=== PATIENT | female | born 1995 | race African-American/Black ===

== ENCOUNTER 2017-02-13 06:18 | Emergency (ER) | payer OTHER ==
[2017-02-13 07:02] VITALS: BMI 29.7
[2017-02-13 07:07] LABS: BASOPHIL 0.5 % (0-2.0); EOSINOPHIL 2.5 % (0-4.5); MCH 27.2 pg (25.7-33.7); MCHC 33.3 g/dl (32.0-36.0); MEAN CELL VOLUME 81.7 fl (80-96); MEAN PLT VOLUME 8.2 fl (7.5-11.1); NEUTROPHILS 41.6 % (42.8-82.8); PLATELET COUNT 415 K/MM3 (134-434); RDW 12.9 % (11.6-15.6); WHITE BLOOD COUNT 6.1 K/mm3 (4.0-10.0)
[2017-02-13 07:35] LABS: ALBUMIN 3.4 g/dl (3.4-5.0); ANION GAP 8 (8-16); BILIRUBIN,TOTAL 0.5 mg/dL (0.2-1.0); CO2 25 mmol/L (21-32); CREATININE 0.5 mg/dL (0.55-1.02); GLUCOSE,RANDOM 93 mg/dL (74-106); SGOT/AST 28 U/L (15-37); SGPT/ALT 63 U/L (12-78); THYROXINE (T4) 13.7 ug/dl (4.8-13.9); TOT PROT 7.3 g/dl (6.4-8.2)
[2017-02-13 07:43] LABS: ALK PHOS 95 U/L (45-117); CPK 49 IU/L (26-192); THYROID STIMULATING HORMONE < 0.01 uIU/ml (0.358-3.74); TROPONIN I < 0.02 ng/ml (0.00-0.05)
[2017-02-13] MEDS ORDERED: SODIUM CHLORIDE 0.9% 1000 ML INFUS.BAG IV ONE (07:51)
--- NOTE | 2017-02-13 07:55 | PDOC ---
History of Present Illness - General Chief Complaint: Tachycardia Stated Complaint: CHEST TIGHTNESS, ABD PAIN Time Seen by Provider: 02/13/17 07:29 History Source: Patient Exam Limitations: No Limitations - History of Present Illness Initial Comments: 02/13/17 09:56 21F with pmh of Grave's disease on methimazole and metoprolol presents to the ED for recent worsening in chest tightness over the past week, sob on exertion and epigastric abdominal pain worsening with food since 10pm last night. Patient has been diagnosed with grave 7 years ago and followed by Dr. Avni White. She is symptomatic with chronically elevated heart rate for which her PCP Rosalinda Mullins prescribed metoprolol last month. Previous abdominal ultrasound from this year showed multiple stones in the gallbladder with possible chronic cholecystitis diagnosis. Patient denies headache, nausea, vomiting, constipation, diarrhea 02/13/17 10:16 Past History - Past Medical History Allergies/Adverse Reactions: Allergies Allergy/AdvReac Type Severity Reaction Status Date / Time No Known Allergies Allergy Verified 02/13/17 06:38 Home Medications: Ambulatory Orders Methimazole 40 mg PO DAILY #30 tablet 02/13/17 Methimazole [Tapazole -] 15 mg PO DAILY 02/13/17 Metoprolol Succinate [Toprol Xl -] 37.5 mg PO DAILY 02/13/17 Metoprolol Tartrate 37.5 mg PO DAILY #30 tablet 02/13/17 Thyroid Disease: Yes - Psycho/Social/Smoking Cessation Hx Suicidal Ideation: No Smoking History: Never smoked Review of Systems - Review of Systems Constitutional: No: Diaphoresis, Fever HEENTM: No: Eye Pain, Blurred Vision Respiratory: Yes: SOB with Exertion. No: Symptoms reported Cardiac (ROS): Yes: Chest Tightness. No: Chest Pain, Edema, Irregular Heart Rate, Lightheadedness ABD/GI: Yes: Poor Appetite. No: Abd. Pain w/ defecation, Constipated, Nausea, Vomiting : No: Symptoms Reported Musculoskeletal: No: Symptoms Reported Endocrine: No: Excessive Sweating, Flushing, Intolerance to Cold, Intolerance to Heat *Physical Exam - Vital Signs Last Vital Signs Temp Pulse Resp BP Pulse Ox 98.6 F 88 18 100/60 100 02/13/17 15:15 02/13/17 15:15 02/13/17 15:15 02/13/17 15:15 02/13/17 15:15 - Physical Exam General Appearance: Yes: Appropriately Dressed, Obese. No: Apparent Distress HEENT: positive: EOMI, Other (proptosis) Gastrointestinal/Abdominal: positive: Normal Bowel Sounds, Soft, Protuberent. negative: Tender Extremity: positive: Normal Capillary Refill, Normal Inspection. negative: Pedal Edema Neurologic: positive: Fully Oriented, Alert, Normal Mood/Affect, Normal Response , Motor Strength 10/29 ED Treatment Course - LABORATORY CBC & Chemistry Diagram: 02/13/17 06:48 02/13/17 06:48 - ADDITIONAL ORDERS Additional order review: Laboratory Results 02/13/17 02/13/17 02/13/17 09:47 08:26 08:26 D-Dimer Sodium Potassium Chloride Carbon Dioxide Anion Gap BUN Creatinine Creat Clearance w eGFR Random Glucose Calcium Total Bilirubin AST ALT Alkaline Phosphatase Creatine Kinase Troponin I Total Protein Albumin Lipase Cancelled TSH Free T4 Serum , Qual Urine Color Patt Urine Appearance Slcloudy Urine pH 5.0 Ur Specific [place] >= 1.030 H Urine Protein 1+ H Urine Glucose (UA) Negative Urine Ketones 1+ H Urine Blood Negative Urine Nitrite Negative Urine Bilirubin 2.0 Urine Urobilinogen 4.0 e.u/dl H Ur Leukocyte Esterase Negative Urine RBC 1 Urine WBC 2 Ur Epithelial Cells Few Urine Mucus Many Urine HCG, Qual Negative Opiates Screen Negative Methadone Screen Negative Barbiturate Screen Negative Phencyclidine Screen Negative Ur Amphetamines Screen Negative MDMA (Ecstasy) Screen Negative Benzodiazepines Screen Negative Cocaine Screen Negative U Marijuana (THC) Screen Negative 02/13/17 02/13/17 02/13/17 06:48 06:48 06:48 D-Dimer < 200 Sodium 140 Potassium 3.6 Chloride 107 Carbon Dioxide 25 Anion Gap 8 BUN 16 Creatinine 0.5 L Creat Clearance w eGFR > 60 Random Glucose 93 Calcium 9.0 Total Bilirubin 0.5 AST 28 ALT 63 Alkaline Phosphatase 95 Creatine Kinase 49 Troponin I < 0.02 Total Protein 7.3 Albumin 3.4 Lipase 76 TSH < 0.01 L Free T4 2.05 H Serum , Qual Negative Urine Color Urine Appearance Urine pH Ur Specific [place] Urine Protein Urine Glucose (UA) Urine Ketones Urine Blood Urine Nitrite Urine Bilirubin Urine Urobilinogen Ur Leukocyte Esterase Urine RBC Urine WBC Ur Epithelial Cells Urine Mucus Urine HCG, Qual Opiates Screen Methadone Screen Barbiturate Screen Phencyclidine Screen Ur Amphetamines Screen MDMA (Ecstasy) Screen Benzodiazepines Screen Cocaine Screen U Marijuana (THC) Screen 02/13/17 06:48 RBC 4.45 MCV 81.7 MCHC 33.3 RDW 12.9 MPV 8.2 Neutrophils % 41.6 L Lymphocytes % 45.1 H Monocytes % 10.3 H Eosinophils % 2.5 Basophils % 0.5 - Medications Given in the ED: ED Medications Discontinued Medications Generic Name Dose Route Start Last Admin Trade Name Celia PRN Reason Stop Dose Admin Methimazole 30 mg 02/13/17 13:30 02/13/17 14:43 Tapazole - PO 30 mg DAILY CAPRI Administration Metoprolol Tartrate 5 mg 02/13/17 10:57 02/13/17 11:21 Lopressor Injection - IVPUSH 02/13/17 10:58 5 mg ONCE ONE Administration Metoprolol Tartrate 25 mg 02/13/17 13:27 02/13/17 14:07 Lopressor - PO 02/13/17 13:28 25 mg ONCE ONE Administration Sodium Chloride 1,000 ml 02/13/17 07:51 02/13/17 08:25 Normal Saline - IV 02/13/17 07:52 1,000 ml ONCE ONE Administration Medical Decision Making - Medical Decision Making 02/13/17 10:45 21F with pmh of Grave's presents with tachycardia, chest tightness and epigastric pain. labs, lytes normal. Bed side u/s negative for riight heart strain, effusion or myexema. EKG ok rate control metoptolol iv 5mg Negative fever, agitation points away from Thyroid Storm etiology. 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 02/13/17 11:57 02/13/17 15:02 Patient received 40mg methinazole + adding 25mg metoprolol PO *DC/Admit/Observation/Transfer Diagnosis at time of Disposition: Graves disease - Discharge Dispostion Disposition: HOME Admit: No - Prescriptions Prescriptions: Methimazole 40 mg PO DAILY #30 tablet Metoprolol Tartrate 37.5 mg PO DAILY #30 tablet - Referrals Referrals: Mykel Colvin MD [Staff Physician] - Rosalinda Mullins MD [Primary Care Provider] - Avni White MD [Staff Physician] - - Patient Instructions Printed Discharge Instructions: DI for Graves Disease, DI for Hyperthyroidism Additional Instructions: Make appointments deann with Dr Adriana Mullins and Dr. White. Dr. Mykel Colvin for gallstone follow up
[2017-02-13 08:30] VITALS: TEMP 98.6
--- NOTE | 2017-02-13 09:41 | PDOC ---
Attending Attestation - Resident Resident Name: Edgar Gomez - ED Attending Attestation I have performed the following: I have examined & evaluated the patient, The case was reviewed & discussed with the resident, I agree w/resident's findings & plan, Exceptions are as noted - HPI HPI: 02/13/17 09:41 21 yo F wit h/o hyperthyroid ( graves on methimazole 15 mg daily and metoprolol 37.5 mg QD) here wtih c/o palpitations, sob and chest pain. pt has had epigastric pain with eating. sharp, intermittent. worse with food . does have known h/o cholelithiasis. sob with exertion, not positional. no noted edema. no f/c no n/v . pain not pleuritic. no other mod factors. was just started on metoprolol by her pcp recently one month ago. told to tirate as needed but has been takig only prescribed 37.5. 02/13/17 10:00 - Physicial Exam PE: 02/13/17 10:01 awake alert lungs clear heart regular tachycardia, no mr/g. abd soft NT ND. no cva tenderness. skin warm and dry. ext wwp no edema. no calf tenderness. 2 + dp / pt . nuero awake alert oriented x 3. calm, FROm and strenth all ext. - Medical Decision Making 02/13/17 10:02 differential Hyperthyroid, dehydration anemia, electrolyte abnormality cholelithaiss, cholecystitis. 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 no sxs of thyroid storm, ( no hypertension, no edema. no delirium) due to HR as high as 150's will require admission for evaluation on tele. 02/13/17 10:07 focused ED ultrasound TTE, no pericardial effusion. no rv dilation or strain. good contractility. impression : normal cardiac ultrasound. cirilli
[2017-02-13 10:31] LABS: URINE APPEARANCE SLCLOUDY; URINE BLOOD NEGATIVE (NEGATIVE); URINE COLOR AMBER; URINE GLUCOSE (UA) NEGATIVE (NEGATIVE); URINE KETONE 1+ (NEGATIVE); URINE LEUK ESTERASE NEGATIVE (NEGATIVE); URINE NITRITE NEGATIVE (NEGATIVE); URINE UROBILINOGEN 4.0 E.U/dl mg/dL (0.2-1.0)
[2017-02-13 10:37] LABS: URINE PROTEIN 1+ (NEGATIVE)
[2017-02-13 10:49] LABS: URINE MUCUS MANY; URINE RBC 1 /hpf (0-3); URINE WBC 2 /hpf (3-5)
[2017-02-13] MEDS ORDERED: METOPROLOL TARTRATE 5 MG/5 ML VIAL IVPUSH ONE (10:57)
[2017-02-13] MEDS ORDERED: METOPROLOL TARTRATE 5 MG/5 ML VIAL ONE (11:13)
[2017-02-13 11:23] LABS: URINE MARIJUANA THC NEGATIVE ng/ml (CUTOFF=50)
[2017-02-13 11:51] LABS: FREE T4 2.05 ng/dl (0.76-1.46)
--- NOTE | 2017-02-13 12:48 | EKG ---
Test Reason : Blood Pressure : / mmHG Vent. Rate : 117 BPM Atrial Rate : 117 BPM P-R Int : 128 ms QRS Dur : 084 ms QT Int : 324 ms P-R-T Axes : 056 062 060 degrees QTc Int : 451 ms SINUS TACHYCARDIA MODERATE VOLTAGE CRITERIA FOR LVH, MAY BE NORMAL VARIANT BORDERLINE ECG NO PREVIOUS ECGS AVAILABLE Confirmed by YAMILETH MEDRANO MD ([id number]) on 02/13/2017 12:48:31 PM Referred By: Confirmed By:YAMILETH MEDRANO MD
[2017-02-13] MEDS ORDERED: METOPROLOL TARTRATE 25 MG TABLET (FP) PO ONE (13:27)
[2017-02-13] MEDS ORDERED: METHIMAZOLE 10 MG TABLET (FP) PO SCH (13:30)
[2017-02-13] MEDS ORDERED: METOPROLOL TARTRATE 25 MG TABLET (FP) ONE (13:34)
[2017-02-13 15:23] VITALS: BP 100/60; PULSE 88
--- NOTE | 2017-02-14 11:30 | EKG ---
Test Reason : Blood Pressure : / mmHG Vent. Rate : 095 BPM Atrial Rate : 095 BPM P-R Int : 142 ms QRS Dur : 090 ms QT Int : 356 ms P-R-T Axes : 007 061 050 degrees QTc Int : 447 ms NORMAL SINUS RHYTHM NORMAL ECG WHEN COMPARED WITH ECG OF 13-FEB-2017 06:54, NO SIGNIFICANT CHANGE WAS FOUND Confirmed by GEOVANNA KNIGHT MD ([id number]) on 02/14/2017 11:29:43 AM Referred By: Confirmed By:GEOVANNA KNIGHT MD
== END 2017-02-13 15:20 | disposition home or self-care (01) ==
LOC: JER 06:18
PROC: 3E033GC Introduction of Other Therapeutic Substance into Peripheral Vein, Percutaneous Approach (ICD-10-PCS; principal; 2017-02-13)
PROC: 3E0337Z Introduction of Electrolytic and Water Balance Substance into Peripheral Vein, Percutaneous Approach (ICD-10-PCS; 2017-02-13)
DX: E05.00 Thyrotoxicosis with diffuse goiter without thyrotoxic crisis or storm (principal)
CPT/HCPCS: 36415; 71020-TC; 80053; 80307; 81003; 81015; 83690; 84436; 84439; 84443; 84481; 84484; 84703; 85025; 85379; 93005; 93010; 99285-25

== ENCOUNTER 2018-09-15 05:25 | Day surgery (SDC) | payer OTHER ==
[2018-09-14 13:47] VITALS: BMI 26.3
[2018-09-15] MEDS ORDERED: MICROFIBRILLAR COLLAGEN 1 GM EACH ONE (10:18)
[2018-09-15] MEDS ORDERED: LIDOCAINE 1%-EPI 1:100,000 30 ML MDV IJ ONE (10:18)
[2018-09-15] MEDS ORDERED: PROPOFOL 20 ML ONE ×2 (12:09→13:59)
[2018-09-15] MEDS ORDERED: SUCCINYLCHOLINE CHLORIDE 200 MG/10 ML VIAL ONE (12:09)
[2018-09-15] MEDS ORDERED: fentaNYL CITRATE 250 MCG/5 ML VIAL ONE (12:09)
[2018-09-15] MEDS ORDERED: ceFAZolin SODIUM 1 GM VIAL IVPB ONE (12:25)
[2018-09-15] MEDS ORDERED: MIDAZOLAM HCL 2 MG/2 ML SINGLE DOSE VIAL ONE (12:26)
[2018-09-15] MEDS ORDERED: LIDOCAINE 1%/EPI 1:100000 (20 ML MULTI DOSE VIAL) IJ ONE (12:57)
[2018-09-15] MEDS ORDERED: MICROFIBRILLAR COLLAGEN 1 GM EACH TP ONE (12:57)
[2018-09-15] MEDS ORDERED: DEXAMETHASONE SOD PHOSPHATE 4 MG/1 ML VIAL ONE (13:49)
[2018-09-15] MEDS ORDERED: oxyCODONE HCL 5 MG TABLET PO PRN ×2 (15:04→15:26)
[2018-09-15] MEDS ORDERED: ONDANSETRON 4 MG/2 ML VIAL IVPUSH PRN (15:04)
[2018-09-15] MEDS ORDERED: PROMETHAZINE HCL 25 MG/1 ML VIAL IVPUSH PRN (15:04)
[2018-09-15] MEDS ORDERED: ACETAMINOPHEN 325 MG TABLET (FP) PO PRN (15:34)
--- NOTE | 2018-09-15 15:43 | OP ---
Operative Note - Note: Operative Date: 09/15/18 Pre-Operative Diagnosis: Graves Disease, hypertension Operation: Left hemithyroidectomy Findings: as dictated Post-Operative Diagnosis: Same as Pre-op Surgeon: Adán Zarate Kiln Maintenance: Diane Tapia Anesthesiologist/H[employer] SUPERVISOR: Brent Hatch Anesthesia: General, Local (10cc 1%Lidocaine with Epi injected at start of case) Specimens Removed: Left thyroid lobe Estimated Blood Loss (mls): 400 (ml) Drains & Tubes with Location: SUBQ hemovac Fluid Volume Replaced (mls): 2,000 (ml LR) Operative Report Dictated: Yes
--- NOTE | 2018-09-15 15:47 | SURG ---
Surgery Dredge Hand Note Dredge Hand: Diane Tapia PA-C (Suzy) Date of Service: 09/15/18 Diagnosis: Graves Disease, hypertension Procedure: Left hemithyroidectomy I was present for the entirety of the operative procedure. For further detail, please refer to operative report. Visit type - Case Type Case Type: Scheduled - Emergency Emergency Visit: No - New patient This patient is new to me today: Yes Date on this admission: 09/20/18 - Critical Care Critical Care patient: No
[2018-09-15] MEDS ORDERED: DOCUSATE SODIUM 100 MG CAPSULE (FP) PO PRN (17:04)
--- NOTE | 2018-09-15 17:04 | PN ---
Progress Note (short form) - Note Progress Note: Pt planned for total thyroidectomy, partial done due to blood loss/concern for L recurrent laryngeal nerve irritation/inflammation. Pt extubated without issue. Mild hoarseness noted in PACU. Vitals stable. Medicine consulted for evaluation for admission (23hr) for observation. Will continue Decadron 10mg q8hrs while in house, no steroids planned for d/c Clears, advance to soft diet as tolerated May be oob ad tiarra HV in place, monitor and record output Monitor VS Labs ordered for 1800 and AM (CBC, Chem) Pain control as ordered Bowel regimen as ordered DVT prophylaxis with b/l scds Admitted to medical service- Dr Fuller
[2018-09-15] MEDS ORDERED: SENNOSIDES 8.6MG TABLET (FP) PO PRN (17:05)
--- NOTE | 2018-09-15 18:01 | CONSULT ---
Consultation: REQUESTING PROVIDER: Dr. Mc CONSULT REQUEST: We have been asked to medically evaluate this patient for post- op monitoring. HISTORY OF PRESENT ILLNESS: 22 y/o F with hx Grave's dz, Nina's thyroiditis dx 8 yrs ago, recent thyroid sono 07/31/18 enlarged thyroid gland, who is being admitted for post-op monitoring. Pt is PO day 0 s/p partial L thyroidectomy. As per surgery team, pt had increased bleeding (400 ml L lobe) during procedure, and there was change of injury of L recurrent laryngeal n. Local anesthetic was used during procedure and L thyroid lobe was removed. Hemovac drain in place. Pt currently without complaint, states that pain is improved with medication. Follows with Dr. Thornton for endocrine. Denies OSEI, fever, chills, SOB, chest pain or pressure, or changes in urinary or bowel function. REVIEW OF SYSTEMS: CONSTITUTIONAL: Absent: fever, chills, diaphoresis, generalized weakness, malaise, loss of appetite, weight change HEENT: Absent: rhinorrhea, nasal congestion, throat pain, throat swelling, difficulty swallowing, mouth swelling, ear pain, eye pain, visual changes CARDIOVASCULAR: Absent: chest pain, syncope, palpitations, irregular heart rate, lightheadedness , peripheral edema RESPIRATORY: Absent: cough, shortness of breath, dyspnea with exertion, orthopnea, wheezing, stridor, hemoptysis GASTROINTESTINAL: Absent: abdominal pain, abdominal distension, nausea, vomiting, diarrhea, constipation, melena, hematochezia GENITOURINARY: Absent: dysuria, frequency, urgency, hesitancy, hematuria, flank pain, genital pain MUSCULOSKELETAL: Absent: myalgia, arthralgia, joint swelling, back pain, neck pain SKIN: Absent: rash, itching, pallor HEMATOLOGIC/IMMUNOLOGIC: Absent: easy bleeding, easy bruising, lymphadenopathy, frequent infections ENDOCRINE: Absent: unexplained weight gain, unexplained weight loss, heat intolerance, cold intolerance NEUROLOGIC: Absent: headache, focal weakness or paresthesias, dizziness, unsteady gait, seizure, mental status changes, bladder or bowel incontinence PSYCHIATRIC: Absent: anxiety, depression, suicidal or homicidal ideation, hallucinations. PHYSICAL EXAMINATION Vital Signs 09/15/18 09/15/18 09/15/18 16:35 16:50 17:05 Temperature 98.5 F Pulse Rate 106 H 105 H 104 H Respiratory 16 16 16 Rate Blood Pressure 128/72 131/72 129/73 O2 Sat by Pulse 97 97 Oximetry (%) GENERAL: Pleasant. Awake, alert, and fully oriented, in no acute distress. HEAD: Normal with no signs of trauma. EYES: Pupils equal, round and reactive to light, extraocular movements intact, sclera anicteric, conjunctiva clear. EARS, NOSE, THROAT: Ears normal, nares patent, oropharynx clear without exudates. Moist mucous membranes. NECK: Normal range of motion, supple. +horizontal surgical scar. no active bleeding. +hemovac in place. LUNGS: Breath sounds equal, clear to auscultation bilaterally. No wheezes, and no crackles. No accessory muscle use. HEART: +tachycardic rate and rhythm, normal S1 and S2 without murmur, rub or gallop. ABDOMEN: Soft, nontender, not distended, normoactive bowel sounds, no guarding, no rebound LOWER EXTREMITIES: 2+ pt pulses, warm, well-perfused. No calf tenderness. No peripheral edema. NEUROLOGICAL: Cranial nerves II-XII intact. able to move UE, LE. sensation intact. PSYCHIATRIC: Cooperative. Good eye contact. SKIN: Warm, dry Laboratory Results - last 24 hr 09/15/18 09/15/18 09:55 13:23 Urine HCG, Qual Negative Blood Type O POSITIVE Antibody Screen Negative Active Medications Generic Name Dose Route Start Last Admin Trade Name Freq PRN Reason Stop Dose Admin Acetaminophen 650 mg 09/15/18 15:34 Tylenol - PO Q6H PRN PAIN OR FEVER Dexamethasone Sodium Phosphate 10 mg 09/15/18 22:00 Decadron Injection - IVPUSH Q8H CAPRI Docusate Sodium 100 mg 09/15/18 17:04 Colace - PO Q12H PRN CONSTIPATION Fentanyl 50 mcg 09/15/18 15:04 Sublimaze Injection - IVPUSH [id number] PRN PAIN-PACU ORDER X 4 DOSES ONLY Lactated Ringer's 1,000 mls @ 100 mls/hr 09/15/18 15:30 Lactated Ringers Solution IV ASDIR CAPRI Methimazole 10 mg 09/16/18 10:00 Tapazole - PO DAILY CAPRI Metoprolol Tartrate 50 mg 09/16/18 10:00 Lopressor - PO DAILY CAPRI Ondansetron HCl 4 mg 09/15/18 15:04 Zofran Injection IVPUSH Q6H PRN NAUSEA AND/OR VOMITING Oxycodone HCl 10 mg 09/15/18 15:04 Roxicodone - PO Q4H PRN PAIN LEVEL 6-10 Oxycodone HCl 5 mg 09/15/18 15:26 Roxicodone - PO Q6H PRN PAIN LEVEL 1-5 Promethazine HCl 12.5 mg 09/15/18 15:04 Phenergan Injection - IVPUSH Q6H PRN NAUSEA-FOR RESCUE AFTER 15 MIN Senna 2 tab 09/15/18 17:05 Senna - PO HS PRN CONSTIPATION ASSESSMENT/PLAN: 22 y/o F with hx Grave's dz, Nina's thyroiditis dx 8 yrs ago, recent thyroid sono 07/31/18 enlarged thyroid gland, who is being admitted for post-op monitoring. #s/p L partial thyroidectomy PO Day 0 -F/u CBC as with increased blood loss. baseline H/H: 11.1/32.6 -transfusion threshold Hb<7. watch for active bleeding -f/u hemovac output -f/u BMP -c/w decadron 10mg IVP q8h for hoarseness. recurrent laryngeal n. -pain control as per sx. roxicodone PRN -IVF #Thyroid dz -c/w methimazole -outpt endocrine is Dr. Thornton. #HTN likely 2/2 thyroid dz -c/w toprol. took dose this AM #F/E/N IV LR 100 cc/hr continue to follow lytes soft diet #PPX SCD's. d/w surgery. wait as pt with bleeding intraop Dispo: We will continue to follow the patient. Thank you for this consultative opportunity. Visit type - Emergency Visit Emergency Visit: No - New Patient This patient is new to me today: Yes Date on this admission: 09/15/18 - Critical Care Critical Care patient: No
[2018-09-15] MEDS: LACTATED RINGERS SOLUTION 1,000 ML IV SCH (18:25)
--- NOTE | 2018-09-15 18:29 | PN ---
Teaching Attending Note Name of Resident: Ariadne Morgan ATTENDING PHYSICIAN STATEMENT I saw and evaluated the patient. I reviewed the resident's note and discussed the case with the resident. I agree with the resident's findings and plan as documented. SUBJECTIVE:22yo F wtih PMH Graves disease presented for thyroidectomy and being observed post-operatively due to large blood loss during surgery. Surgery was aborted after the L thyroid lobe was removed due to >350cc blood loss. hemovac was placed. also concern for injurt to L recurrent larygneal nerve. currently the patient states pain is controlled with pain medication. states her voice is feeling stronger at this time and having less difficulty with phonation. denies CP, SOB< fever, chills, N/V/C/D OBJECTIVE: Last Vital Signs Temp Pulse Resp BP Pulse Ox 97.6 F 100 H 20 128/75 98 09/15/18 18:09 09/15/18 18:09 09/15/18 18:09 09/15/18 18:09 09/15/18 18:09 General NAD HEENT enlarged neck with horizontal surgical incision with tegaderm dressing. Hemovac in place with minimal sangenous drainage CV S1 S2 RRR no murmur Lungs CTA B/L no wheezing/rales/rhonchi Abdomen soft NT/ND ASSESSMENT AND PLAN: 22yo F wtih PMH Graves disease presented for thyroidectomy and being observed post-operatively due to large blood loss during surgery 1. Acute blood loss anemia-due to surgery. will send for stat CBC and monitor Hgb Q8H, tranfsuse as needed. monitor surgical site for bleeding 2. L recurrent nerve injury- voice phonation is improving and liekly not injured nerve. started on decadron 3. Graves disease- s/p L partial thyroidectomy 09/15. surgery aborted due to large blood loss. further recommendations from surgical team. pain contro. cont mehimazole 4. DVT ppx- EAM. hold anticoagulation with recent blood loss 5. spoke with sister present at bedside. all questions answered. anticipate discharge in next 24H
[2018-09-15 19:23] LABS: BASO % 0.1 % (0-2.0); HEMATOCRIT 31.1 % (32.4-45.2); HEMOGLOBIN 10.8 GM/dL (10.7-15.3); LYMPH % 3.7 % (8-40); MCHC 34.6 g/dl (32.0-36.0); MONO % 1.6 % (3.8-10.2); NEUT % 94.6 % (42.8-82.8); PLATELET COUNT 379 K/MM3 (134-434); RBC 3.71 M/mm3 (3.60-5.2); WHITE BLOOD COUNT 10.1 K/mm3 (4.0-10.0)
[2018-09-15 19:46] LABS: ANION GAP 9 MMOL/L (8-16); BLOOD UREA NITROGEN 14 mg/dL (7-18); CALCIUM 8.2 mg/dL (8.5-10.1); CHLORIDE 109 mmol/L (98-107); CO2 22 mmol/L (21-32); CREATININE 0.5 mg/dL (0.55-1.3); GLUCOSE,RANDOM 85 mg/dL (74-106); POTASSIUM 4.4 mmol/L (3.5-5.1); SODIUM 139 mmol/L (136-145)
[2018-09-15] MEDS: DEXAMETHASONE SOD PHOSPHATE 10 MG/1 ML VIAL IVPUSH SCH (21:55)
[2018-09-15 23:23] LABS: PLATELET ESTIMATE ADEQUATE
[2018-09-16] MEDS: LACTATED RINGERS SOLUTION 1,000 ML IV SCH (01:14)
[2018-09-16] MEDS: DEXAMETHASONE SOD PHOSPHATE 10 MG/1 ML VIAL IVPUSH SCH (06:20)
[2018-09-16] MEDS ORDERED: METOPROLOL TARTRATE 50 MG TABLET (FP) PO SCH (07:15)
[2018-09-16 08:19] LABS: HEMATOCRIT 30.4 % (32.4-45.2); HEMOGLOBIN 10.4 GM/dL (10.7-15.3); LYMPH % 6.9 % (8-40); MCH 28.5 pg (25.7-33.7); MCHC 34.1 g/dl (32.0-36.0); MEAN CELL VOLUME 83.7 fl (80-96); MONO % 4.5 % (3.8-10.2); NEUT % 88.6 % (42.8-82.8); PLATELET COUNT 354 K/MM3 (134-434); RBC 3.63 M/mm3 (3.60-5.2); RDW 13.7 % (11.6-15.6); WHITE BLOOD COUNT 11.7 K/mm3 (4.0-10.0)
--- NOTE | 2018-09-16 08:21 | OP ---
DATE OF OPERATION: 09/15/2018 SURGICAL ATTENDING: Iwona Uribe MD MANAGER STERILE: Antonieta. PREOPERATIVE DIAGNOSIS: Graves disease. POSTOPERATIVE DIAGNOSIS: Graves disease. ANESTHESIA: General endotracheal. PROCEDURE: Left hemithyroidectomy. DESCRIPTION OF PROCEDURE: The patient was taken into the operating room and placed in a supine position. Endotracheally intubated. A shoulder roll was placed. Arms were tucked. All pressure points were checked and protected. Nerve monitoring equipment was placed. It was tested and found to be working. Neck ultrasound was then performed showing an enlarged thyroid gland the right side somewhat greater than the left. No adenopathy seen. The neck was then prepped and draped in the usual sterile fashion. Local anesthesia was administered. A 7-cm horizontal incision was made in an anterior lower neck skin crease, carried down through subcutaneous tissues and platysma. Subplatysmal flaps were raised superiorly and inferiorly, and flap hooks were placed for exposure. The median raphae was incised, and the left-sided strap muscles were elevated off the thyroid gland. The gland was extremely hyperemic and bleed very easy. Meticulous hemostasis was achieved throughout the case. The recurrent laryngeal nerve was identified and was seen to be draped up onto the gland and branching approximately 2 cm before incision. It was carefully dissected off of the gland and isolated. The gland was then removed by transecting the superior pole, inferior and posterior attachments and then shaving the gland off the trachea. The isthmus was transected. Hemostasis was achieved with a running, locking stitch and bipolar electrocautery. Avitene was also placed. Testing of the recurrent laryngeal nerve showed a loss of signal. There was a laryngeal twitch when stimulating the distal 3 mm of nerve; however, given the concern for possible bilateral paresis if the operation continued, I elected to stop the operation in favor of returning to the operating room at a future date for completion thyroidectomy. After hemostasis was achieved, attention was turned toward closure. The wound was closed in 3 layers. A Hemovac drain was placed below the skin and sutured to the corner of the wound. Dermabond was placed. The patient was then extubated, awakened, and taken to recovery in stable condition. Dr. Uribe, the attending surgeon, was present throughout the entire procedure. IWONA URIBE M.D. [id number]
[2018-09-16 08:23] LABS: ANION GAP 7 MMOL/L (8-16); BLOOD UREA NITROGEN 7 mg/dL (7-18); CALCIUM 8.7 mg/dL (8.5-10.1); CHLORIDE 108 mmol/L (98-107); CO2 22 mmol/L (21-32); CREATININE 0.4 mg/dL (0.55-1.3); GLUCOSE,RANDOM 113 mg/dL (74-106); POTASSIUM 4.3 mmol/L (3.5-5.1); SODIUM 137 mmol/L (136-145)
--- NOTE | 2018-09-16 09:47 | PN ---
Progress Note (short form) - Note Progress Note: Postop day #1 from left hemithyroidectomy. Procedure terminated due to loss of signal in the left recurrent laryngeal nerve and precarious location of the nerve draped over the left thyroid lobe. Completion thyroidectomy to be scheduled once the left RLN recovers. Blood loss was significant but not prohibitive. Now awake and alert, some mild dyspnea and hoarseness, mild pain. Drain minimal. Wound clean, dry and intact and neck is flat with no collection. Drain removed. DC home today. RTO next week for fiberoptic laryngoscopy. Continue preop doses of methimazole and metoprolol.
[2018-09-16] MEDS ORDERED: METHIMAZOLE 10 MG TABLET (FP) PO SCH (10:00)
[2018-09-16] MEDS ORDERED: METOPROLOL TARTRATE 50 MG PO SCH (10:00)
[2018-09-16] MEDS ORDERED: METOPROLOL TARTRATE 25 MG TABLET (FP) PO SCH (10:00)
--- NOTE | 2018-09-16 10:00 | DS ---
Physical Exam: SUBJECTIVE: Patient seen and examined. states voice is improving. pain is controlled with pain medications. feels her HR racing slightly. denies CP, SOB< fever, chills, N/V/C/D. tolerated diet OBJECTIVE: Vital Signs Period Temp Pulse Resp BP Sys/Sommer Pulse Ox Last 24 Hr 97.6 F-99.1 F 98-124 16-24 123-151/60-91 97-100 PHYSICAL EXAM GENERAL: The patient is awake, alert, and fully oriented, in no acute distress. HEAD: Normal with no signs of trauma. EYES: PERRL, extraocular movements intact, sclera anicteric, conjunctiva clear. ENT: Ears normal, nares patent, NECK: Trachea midline, horizontal surgical incision, c/d/i with hemovac in place , mild swelling LUNGS: Breath sounds equal, clear to auscultation bilaterally, no wheezes, no crackles, no accessory muscle use. HEART: tachycardic, S1, S2 without murmur, rub or gallop. ABDOMEN: Soft, nontender, nondistended, normoactive bowel sounds, no guarding, no rebound, no hepatosplenomegaly, no masses. EXTREMITIES: 2+ pulses, warm, well-perfused, no edema. NEUROLOGICAL: Cranial nerves II through XII grossly intact. Normal speech, gait not observed. PSYCH: Normal mood, normal affect. SKIN: Warm, dry, normal turgor, no rashes or lesions noted. LABS Laboratory Results - last 24 hr 09/15/18 09/15/18 09/15/18 09:55 13:23 18:30 WBC RBC Hgb Hct MCV MCH MCHC RDW Plt Count MPV Absolute Neuts (auto) Neutrophils % Neutrophils % (Manual) Band Neutrophils % Lymphocytes % Monocytes % Eosinophils % Basophils % Nucleated RBC % Platelet Estimate PTT (Actin FS) Sodium Potassium Chloride Carbon Dioxide Anion Gap BUN Creatinine Creat Clearance w eGFR Random Glucose Calcium ALT 18 Urine HCG, Qual Negative HIV 1&2 Antibody Screen HIV P24 Antigen Blood Type O POSITIVE Antibody Screen Negative 09/15/18 09/15/18 09/15/18 18:30 18:30 18:30 WBC 10.1 H RBC 3.71 Hgb 10.8 Hct 31.1 L MCV 84.0 MCH 29.0 MCHC 34.6 RDW 14.0 Plt Count 379 MPV 8.0 Absolute Neuts (auto) 9.5 H Neutrophils % 94.6 H D Neutrophils % (Manual) 99.0 H Band Neutrophils % 1.0 Lymphocytes % 3.7 L D Monocytes % 1.6 L D Eosinophils % 0.0 D Basophils % 0.1 Nucleated RBC % 0 Platelet Estimate Adequate PTT (Actin FS) Sodium 139 Potassium 4.4 Chloride 109 H Carbon Dioxide 22 Anion Gap 9 BUN 14 Creatinine 0.5 L Creat Clearance w eGFR 152.90 Random Glucose 85 Calcium 8.2 L ALT Urine HCG, Qual HIV 1&2 Antibody Screen Negative HIV P24 Antigen Negative Blood Type Antibody Screen 09/15/18 09/16/18 09/16/18 18:30 06:40 06:40 WBC 11.7 H RBC 3.63 Hgb 10.4 L Hct 30.4 L MCV 83.7 MCH 28.5 MCHC 34.1 RDW 13.7 Plt Count 354 MPV 8.0 Absolute Neuts (auto) 10.3 H Neutrophils % 88.6 H Neutrophils % (Manual) Band Neutrophils % Lymphocytes % 6.9 L D Monocytes % 4.5 D Eosinophils % 0.0 Basophils % 0.0 Nucleated RBC % 0 Platelet Estimate PTT (Actin FS) 34.2 Sodium 137 Potassium 4.3 Chloride 108 H Carbon Dioxide 22 Anion Gap 7 L BUN 7 Creatinine 0.4 L Creat Clearance w eGFR 197.80 Random Glucose 113 H Calcium 8.7 ALT Urine HCG, Qual HIV 1&2 Antibody Screen HIV P24 Antigen Blood Type Antibody Screen HOSPITAL COURSE: Date of Admission:09/15/18 Date of Discharge: 09/16/18 admitting diagnosis: Acute blood loss anemia, L recurrent nerve injury, s/p partial thyroidectomy pre hospital course 22 y/o F with hx Grave's dz, Nina's thyroiditis dx 8 yrs ago, recent thyroid sono 07/31/18 enlarged thyroid gland, who is being admitted for post-op monitoring. Pt is PO day 0 s/p partial L thyroidectomy. As per surgery team, pt had increased bleeding (400 ml L lobe) during procedure, and there was change of injury of L recurrent laryngeal n. Local anesthetic was used during procedure and L thyroid lobe was removed. Hemovac drain in place. Pt currently without complaint, states that pain is improved with medication. Follows with Dr. Thornton for endocrine. Denies OSEI, fever, chills, SOB, chest pain or pressure, or changes in urinary or bowel function. Subsequnt hospital course came to [facility] for scheduled thyroidectomy. due to large blood loss and difficulty with phonation it was decided pt to be observed overnight in the hospital. hemovac was placed during the surgery and removed prior to discharge. Hgb was trended and remained stable, not requiring transfusions. was started on decadoron for difficulty with phonation which improved during stay. sinus tach was also noted liekly due to pain and recent blood loss. rate remained stable was evaluated by Dr Zarate and will be d/c. instructed to f/u with him and PMD Minutes to complete discharge: 40 Discharge Summary Reason For Visit: GRAVES DISEASE; COUGH; HYPERTENSION Current Active Problems S/P partial thyroidectomy (Acute) Condition: Good - Instructions Diet, Activity, Other Instructions: Post-operative Instructions: Wound: You have a liquid plastic dressing over your incision. It may look like a scab. This does not need to be removed. It will gradually flake off. Sponge bathe only for 48 hours. You may shower in 48 hours. When showering allow soap and water to run over the incision. DO not scrub the incision. Do not apply any ointments or moisturizers to the incision. Do not swim or soak in water (bath/hot tub, etc) until cleared by your surgeon as this can lead to infection. Check incision site twice a day for the following: Green/yellow discharge, increased redness and/or tenderness at incision site and opening of the incision. You should also watch for flu like symptoms and/or a temperature above 101.5F. If any of the above occurs, contact your surgeon. Diet: Cold liquids/foods (like ice chips, pudding, yogurt, ice cream, popsicles) are recommended initially then progress slowly to advance diet. A sensation of having a lump in your throat is normal. This may make it feel uncomfortable to swallow large bites of solid food. You should take small bites, chew well, and/or eat soft foods until this resolves. Make sure to increase your fiber intake and drink plenty of fluids (unless you have fluid restrictions due to a medical condition), to prevent constipation which is a side affect of narcotic pain medication. You may also take an over the counter stool softener if needed such as DulcoEase. Medications: Continue your current thyroid medications. Pain medication should be used as prescribed for pain. If the pain medication you have been given is not controlling your pain, call the office. Pain medications can cause nausea, which can be prevented if you take them with food or milk. Take an over the counter stool softener (DuloEase/Colace) as needed for constipation as this is a common side effect of narcotic pain medications. Take all of your routine medications as prescribed, unless told otherwise by your surgeon. Do not drive, drink alcohol or operate heavy machinery while taking narcotic pain medications. If your narcotic pain prescription contains Tylenol (Acetaminophen), do not take additional Tylenol (Acetaminophen). Activities: The best exercise is walking. Small amounts done frequently are best. Try to set a goal of one mile per day total. It is best to stay mobile to avoid development of blood clots in your legs. No strenuous exercising until cleared by your surgeon. Avoid bending your neck or looking over your shoulder to look up as this can pull on your sutures and cause your incision to open. No shaving No heavy lifting (greater than 5 pounds). If any activity causes discomfort, do not do it! Your doctor should clear you before you return to work. Follow Up: Call the office for a follow up appointment next week. Call your surgeon's office or report to the ED immediately if you experience: Fever over 101 F Increasing neck swelling under incision, difficulty breathing Pain that is not relieved by your medications Purulent drainage (pus) from the incision Redness surrounding the incision that is worsening or getting bigger Bleeding is possible after surgery and the most serious cases may cause trouble breathing. Symptoms include rapid swelling in the neck, trouble breathing, red and purple discoloration of the skin over the incision. Please call doctor immediately or if trouble breathing is present, go to the closest emergency room or call 911. ISTOP: [phone] Referrals: Adán Zarate MD [Staff Physician] - Disposition: HOME - Home Medications Comprehensive Discharge Medication List: Ambulatory Orders Methimazole [Tapazole -] 10 mg PO DAILY 02/13/17 Metoprolol Tartrate 50 mg PO DAILY 09/14/18 Docusate Sodium [Dulcolax Stool Softener] 100 mg PO BID 14 Days #30 capsule Oxycodone HCl/Acetaminophen [Percocet 5-325 mg Tablet] 1 tab PO Q6H #10 tablet MDD 5 09/15/18 This patient is new to me today: No Emergency Visit: No Critical Care patient: No - Discharge Referral Referred to [facility] No
[2018-09-16] MEDS ORDERED: PT OWN MED DRAWER 7, Y5N ONE (10:07)
[2018-09-16 11:21] VITALS: BP 147/97; PULSE 106; TEMP 99.6
[2018-09-17 07:25] LABS: HBsAG SCREEN Negative (Negative)
--- NOTE | 2018-09-19 16:04 | PATH ---
Surgical Pathology Report Patient Name: LAURA HARTMAN [facility]. Rec. #: [id number] /Age/Gender: 1995 (Age: 22) / F Account: [id number] Location: AMBULATORY SURG Taken: 09/15/2018 Received: 09/18/2018 Reported: 09/19/2018 Physicians: Adán Zarate M.D. Specimen(s) Received LEFT THYROID LOBE Clinical History Graves' disease Final Diagnosis THYROID, LEFT LOBE, EXCISION: DIFFUSE FOLLICULAR HYPERPLASIA WITH PAPILLARY INFOLDING AND FOCAL LYMPHOCYTIC THYROIDITIS MORPHOLOGICALLY CONSISTENT WITH GRAVES' DISEASE. AREAS WITH STROMAL FIBROSIS PRESENT. Electronically Signed Mark Greenfield M.D. Gross Description Received in formalin labeled "left thyroid lobe," is a 56 g, 8.0 x 4.0 x 3.5 cm thyroid lobe. The outer capsule is lee-brown and intact. Sectioning reveals homogeneous pale lee-brown, focally cystic parenchyma. Separately received within the same container is a 6 g, 3.7 x 2.2 x 1.5 cm portion of thyroid. The outer capsule is lee-brown with a focal defect. Sectioning reveals homogeneous pale lee parenchyma. Plant Attendant Or Assistant Operator sections are submitted in 12 cassettes as follows: [id number] submitted thyroid lobe; [id number] submitted separately received smaller portion of thyroid. /09/18/2018 saudi09/18/2018
== END 2018-09-16 11:36 | disposition home or self-care (01) ==
LOC: JASU-SURG 05:25 → JASUSAT 05:25 → SUATTDRO 05:25 → J8W 17:52 → JASUSAT 09-16 11:36
PROVIDERS: ATTEND Internal Medicine
PROC: 0GTG0ZZ Resection of Left Thyroid Gland Lobe, Open Approach (ICD-10-PCS; principal; 2018-09-15 11:00)
DX: E05.00 Thyrotoxicosis with diffuse goiter without thyrotoxic crisis or storm (principal)
CPT/HCPCS: 36415; 80048; 84460; 84703; 85025; 85730; 86803; 86850; 86900; 86901; 87340; 87389; 88307-TC; 94760; J1100

== ENCOUNTER 2018-12-08 11:20 | Day surgery (SDC) | payer OTHER ==
[2018-12-07 14:28] VITALS: BMI 27.8
[2018-12-08] MEDS ORDERED: ONDANSETRON 4 MG/2 ML VIAL ONE (13:02)
[2018-12-08] MEDS ORDERED: SODIUM CHLORIDE 0.9% P/F 10 ML VIAL IJ ONE (13:02)
[2018-12-08] MEDS ORDERED: ceFAZolin SODIUM 1 GM VIAL ONE (13:02)
[2018-12-08] MEDS ORDERED: LIDOCAINE HCL/PF 2% SDV 5ML VIAL ONE ×2 (13:02→16:45)
[2018-12-08] MEDS ORDERED: DEXAMETHASONE SOD PHOSPHATE 4 MG/1 ML VIAL ONE (13:02)
[2018-12-08] MEDS ORDERED: MICROFIBRILLAR COLLAGEN 1 GM EACH ONE ×2 (14:17→16:39)
[2018-12-08] MEDS ORDERED: LIDOCAINE 1%-EPI 1:100,000 30 ML MDV IJ ONE (14:17)
[2018-12-08] MEDS ORDERED: KETAMINE HCL 200 MG/20 ML VIAL ONE (14:27)
[2018-12-08] MEDS ORDERED: MIDAZOLAM HCL 2 MG/2 ML SINGLE DOSE VIAL ONE (14:27)
[2018-12-08] MEDS ORDERED: ONDANSETRON 4 MG/2 ML VIAL IVPUSH PRN ×2 (14:47→17:15)
[2018-12-08] MEDS ORDERED: LACTATED RINGERS SOLUTION 1,000 ML IV SCH ×3 (15:00→17:15)
[2018-12-08] MEDS ORDERED: ceFAZolin SODIUM 1 GM VIAL IVPB ONE (15:05)
[2018-12-08] MEDS ORDERED: PROPOFOL 20 ML ONE ×2 (15:19→16:35)
[2018-12-08] MEDS ORDERED: LIDOCAINE 1%/EPI 1:100000 (50 ML MULTI DOSE VIAL) NR ONE (15:20)
[2018-12-08] MEDS ORDERED: oxyCODONE HCL 5 MG TABLET PO PRN ×3 (17:15→17:20)
[2018-12-08] MEDS ORDERED: ACETAMINOPHEN 1000 MG/100 ML VIAL (NON FORMULARY) IVPB ONE ×2 (17:16→17:45)
--- NOTE | 2018-12-08 17:34 | OP ---
Operative Note - Note: Operative Date: 12/08/18 Pre-Operative Diagnosis: Graves disease Operation: Right hemithyroidectomy Post-Operative Diagnosis: Same as Pre-op Surgeon: Adán Zarate Retail Salesperson: Patt Ramirez Anesthesiologist/COMPRESSOR MECHANIC BUS: Efra Kelyl Anesthesia: General Specimens Removed: right thyroid lobe Estimated Blood Loss (mls): 200 Fluid Volume Replaced (mls): 800 Operative Report Dictated: Yes
--- NOTE | 2018-12-08 17:35 | SURG ---
Surgery Growth Hacker Note Growth Hacker: Patt Ramirez PA-C Date of Service: 12/08/18 Diagnosis: Graves disease Procedure: right hemithyroidectomy I was present for the entirety of the operative procedure. For further detail, please refer to operative report. Visit type - Case Type Case Type: Scheduled - Emergency Emergency Visit: No - New patient This patient is new to me today: Yes Date on this admission: 12/08/18
[2018-12-08] MEDS ORDERED: ACETAMINOPHEN INJECTION 100 ML IVPB ONE (18:22)
[2018-12-08 20:59] VITALS: BP 119/71; PULSE 105; TEMP 97.9
--- NOTE | 2018-12-09 08:57 | OP ---
DATE OF OPERATION: 12/08/2018 SURGICAL ATTENDING: Iwona Uribe MD SURGICAL PHYSICIAN CULLET CRUSHER: ROGER Rodriguez PREOPERATIVE DIAGNOSIS: Graves disease. POSTOPERATIVE DIAGNOSIS: Graves disease. ANESTHESIA: General endotracheal. PROCEDURE: 1. Right completion thyroidectomy. 2. Cervical scar excision. 3. Neck ultrasound. DESCRIPTION OF PROCEDURE: Patient was taken into the operating room, placed in the supine position, endotracheally intubated. Neck ultrasound was performed showing a large right thyroid mass with no left thyroid. The neck was then prepped and draped in the usual sterile fashion. The previously made horizontal scar on the anterior neck was excised and sent to pathology. Subplatysmal flaps were raised superiorly and inferiorly, and flap hooks were placed for exposure. The mean raphe was incised, and the strap muscles were elevated off of the right thyroid lobe. The recurrent laryngeal nerve, superior laryngeal nerve, and parathyroid glands were identified and preserved. The superior, posterior, and inferior attachments of the thyroid gland were transected. The thyroid gland was lifted off the trachea, and in this way, the right thyroid lobe was removed. It was checked for parathyroid tissue, and none was found. It was then submitted to Pathology for pathological evaluation. Valsalva maneuver was performed, and electrocautery and clips and Avitene were used for hemostasis. No bleeding was seen. The wound was then closed in 3 layers. Dermabond was placed. The patient was then awakened, extubated, and taken to recovery in stable condition. Dr. Uribe, the attending surgeon, was present throughout the entire procedure. IWONA URIBE M.D. [id number]
[2018-12-09] MEDS ORDERED: METOPROLOL TARTRATE 50 MG TABLET (FP) PO SCH (10:00)
[2018-12-09] MEDS ORDERED: CALCITRIOL 0.25 MCG CAPSULE (FP) PO SCH ×2 (10:00)
[2018-12-09] MEDS ORDERED: CALCIUM CARBONATE 650 MG TABLET PO SCH (10:00)
[2018-12-09] MEDS ORDERED: CALCIUM (OYSTER SHELL) 500 MG TABLET (FP) PO SCH (10:00)
--- NOTE | 2018-12-12 17:00 | PATH ---
Surgical Pathology Report Patient Name: LAURA HARTMAN [facility]. Rec. #: [id number] /Age/Gender: 1995 (Age: 23) / F Account: [id number] Location: AMBULATORY SURG Taken: 12/08/2018 Received: 12/11/2018 Reported: 12/12/2018 Physicians: Adán Zarate M.D. Specimen(s) Received A: CERVICAL SCAR B: RIGHT THYROID LOBE Clinical History Graves' disease Final Diagnosis A. CERVICAL SCAR, EXCISION: SEGMENT OF SKIN WITH SCAR, CHRONIC INFLAMMATION, HISTIOCYTIC REACTION INCLUDING FOREIGN BODY TYPE MULTINUCLEATED GIANT CELLS. B. RIGHT THYROID LOBE, HEMITHYROIDECTOMY: THYROID TISSUE SHOWING DIFFUSE FOLLICULAR HYPERPLASIA WITH PAPILLARY INFOLDING, PROMINENT VASCULAR CONGESTION, PATCHY LYMPHOCYTIC INFILTRATE AND FOCAL STROMAL FIBROSIS, CONSISTENT WITH GRAVES' DISEASE. Electronically Signed Janet Kan M.D. Gross Description A. Received in formalin labeled "cervical scar," is a 5.5 x 0.7 cm brown, elliptical, unoriented portion of skin excised to a depth of 1.0 cm. The epidermal surface displays a central, linear, well-healed scar. Pure Pak Machine Operator sections are submitted in one cassette. B. Received in formalin labeled "right thyroid lobe," is a 122 g, 10.2 x 6.0 x 4.0 cm thyroid lobe. The outer capsule is candelaria-brown and intact. Sectioning reveals homogeneous lee-brown, lobulated parenchyma. No discrete mass is identified. Pure Pak Machine Operator sections are separately submitted in 11 cassettes. DL/12/11/2018 saudi/12/11/2018
== END 2018-12-08 21:15 | disposition home or self-care (01) ==
LOC: JASUSAT 11:20 → JASU-SURG 11:20 → J6S 19:39 → JASUSAT 21:15
PROVIDERS: ATTEND Surgery
PROC: 0GTH0ZZ Resection of Right Thyroid Gland Lobe, Open Approach (ICD-10-PCS; principal; 2018-12-08 13:30)
DX: E05.00 Thyrotoxicosis with diffuse goiter without thyrotoxic crisis or storm (principal)
CPT/HCPCS: 36415; 84703; 88304-TC; 88307-TC; 94760; J0131

== ENCOUNTER 2024-07-05 17:31 | Observation (INO) | payer BC, OTHER ==
[2024-07-05] MEDS: LACTATED RINGERS SOLUTION 1000 ML INFUS.BAG IV ONE (21:40)
[2024-07-05 21:46] LABS: HEMATOCRIT 22.4 % (32.4-45.2); MCHC 27.9 g/dl (32.0-36.0); MEAN CELL VOLUME 61.6 fl (80-96); MEAN PLT VOLUME 6.5 fl (7.5-11.1); PLATELET COUNT 828 10^3/uL (134-434); RBC 3.64 M/mm3 (3.60-5.2); RDW 20.2 % (11.6-15.6); WHITE BLOOD COUNT 6.4 K/mm3 (4.0-10.0)
[2024-07-05 21:51] LABS: EPI CELLS >36 /uL (0-25.1); HCG,QUALITATIVE URINE Negative; HYALINE CASTS 4 /uL (0-3.1); URINE APPEARANCE CLOUDY; URINE BACTERIA 1078 /uL (0-1359); URINE BILIRUBIN NEGATIVE (NEGATIVE); URINE COLOR ORANGE; URINE GLUCOSE (UA) NEGATIVE (NEGATIVE); URINE KETONE 1+ (NEGATIVE); URINE LEUK ESTERASE TRACE (NEGATIVE); URINE NITRITE NEGATIVE (NEGATIVE); URINE PROTEIN 2+ (NEGATIVE); URINE RBC 5806 /uL (0-23.9); URINE WBC 74 /uL (0-25.8)
[2024-07-05 21:54] LABS: MCH 17.2 pg (25.7-33.7)
[2024-07-05 21:55] LABS: ADD RBC MORPHOLOGY YES
[2024-07-05 21:57] LABS: HEMOGLOBIN 6.2 GM/dL (10.7-15.3)
[2024-07-05 22:08] LABS: INR 1.03 (0.83-1.09); PROTHROMBIN TIME (PATIENT) 11.8 SEC (9.7-13.0)
[2024-07-05 22:11] LABS: ACTIVATED PTT 32.4 SECONDS (25.2-36.5)
[2024-07-05 22:19] LABS: POTASSIUM 4.2 mmol/L (3.5-5.1)
[2024-07-05 22:21] LABS: CALCIUM 8.9 mg/dL (8.5-10.1)
[2024-07-05 22:22] LABS: ALBUMIN 3.5 g/dl (3.4-5.0); BLOOD UREA NITROGEN 8.9 mg/dL (7-18); MAGNESIUM 2.3 mg/dL (1.8-2.4)
[2024-07-05 22:25] LABS: CREATININE 0.8 mg/dL (0.55-1.3); PHOSPHOROUS 2.8 mg/dL (2.5-4.9)
[2024-07-05 22:27] LABS: BILIRUBIN,TOTAL 0.2 mg/dL (0.2-1); TOT PROT 7.4 g/dl (6.4-8.2)
[2024-07-05 23:02] LABS: ANISOCYTOSIS 2+; MACROCYTOSIS 0; OVALOCYTE 1+
[2024-07-05 23:11] LABS: HIV INTERPRETATION NEGATIVE (NEGATIVE)
[2024-07-06 05:19] VITALS: BMI 36.3
[2024-07-06] MEDS: LEVOTHYROXINE NA 125 MCG TABLET (FP) PO SCH (08:38)
[2024-07-06] MEDS: lamoTRIgine 100 MG TABLET PO SCH (10:47)
[2024-07-06] MEDS: VENLAFAXINE HCL 75 MG E.R. CAPSULES PO SCH (15:24)
[2024-07-06 19:49] LABS: HEMATOCRIT 27.7 % (32.4-45.2); HEMOGLOBIN 8.4 GM/dL (10.7-15.3); MCH 20.2 pg (25.7-33.7); MCHC 30.2 g/dl (32.0-36.0); MEAN CELL VOLUME 67.1 fl (80-96); MEAN PLT VOLUME 6.8 fl (7.5-11.1); PLATELET COUNT 733 10^3/uL (134-434); RBC 4.13 M/mm3 (3.60-5.2); RDW 25.6 % (11.6-15.6); RETICULOCYTES 2.07 % (0.5-1.5); WHITE BLOOD COUNT 8.1 K/mm3 (4.0-10.0)
[2024-07-06 20:35] LABS: POTASSIUM 4.2 mmol/L (3.5-5.1)
[2024-07-06 20:37] LABS: ALBUMIN 3.5 g/dl (3.4-5.0); CALCIUM 9.2 mg/dL (8.5-10.1)
[2024-07-06 20:38] LABS: BLOOD UREA NITROGEN 7.4 mg/dL (7-18); MAGNESIUM 2.2 mg/dL (1.8-2.4)
[2024-07-06 20:41] LABS: CREATININE 0.8 mg/dL (0.55-1.3); PHOSPHOROUS 2.8 mg/dL (2.5-4.9)
[2024-07-06 20:42] LABS: BILIRUBIN,TOTAL 0.4 mg/dL (0.2-1); TOT PROT 7.2 g/dl (6.4-8.2)
[2024-07-06 21:24] LABS: ANISOCYTOSIS 3+; MACROCYTOSIS 0; OVALOCYTE 1+; TARGET CELLS 1+; TEAR DROP CELLS 1+
[2024-07-07 11:13] LABS: HEMATOCRIT 27.7 % (32.4-45.2); HEMOGLOBIN 8.3 GM/dL (10.7-15.3); MCHC 29.8 g/dl (32.0-36.0); MEAN CELL VOLUME 67.1 fl (80-96); MEAN PLT VOLUME 6.9 fl (7.5-11.1); PLATELET COUNT 726 10^3/uL (134-434); RBC 4.13 M/mm3 (3.60-5.2); RDW 25.8 % (11.6-15.6); WHITE BLOOD COUNT 8.8 K/mm3 (4.0-10.0)
[2024-07-07 11:58] LABS: ANISOCYTOSIS 1+; MACROCYTOSIS 0; OVALOCYTE 1+
[2024-07-07] MEDS: TRANEXAMIC ACID 1000 MG/10 ML VIAL IVPUSH ONE (12:26)
[2024-07-07 14:26] VITALS: RESP 18
[2024-07-08 08:08] LABS: FOLLICLE STIMULATING HORMONE 5.2 mIU/mL (.); LUTEINIZING HORMONE 9.8 mIU/mL (.)
[2024-07-08 09:32] LABS: HEMATOCRIT 27.4 % (32.4-45.2); HEMOGLOBIN 8.1 GM/dL (10.7-15.3); MCH 20.1 pg (25.7-33.7); MCHC 29.5 g/dl (32.0-36.0); PLATELET COUNT 718 10^3/uL (134-434); RBC 4.03 M/mm3 (3.60-5.2); RDW 26.7 % (11.6-15.6); WHITE BLOOD COUNT 8.7 K/mm3 (4.0-10.0)
[2024-07-08] MEDS: medroxyPROGESTERone ACET 150 MG/1 ML VIAL IM ONE ×2 (11:27→13:03)
[2024-07-08 14:09] VITALS: BP 119/75; PULSE 102; TEMP 97.2
== END 2024-07-08 14:40 | disposition home or self-care (01) ==
LOC: JER 17:31 → JERBED 22:25 → J5S 07-06 00:54
PROVIDERS: ADMIT Internal Medicine; ATTEND Internal Medicine
PROC: 30233N1 Transfusion of Nonautologous Red Blood Cells into Peripheral Vein, Percutaneous Approach (ICD-10-PCS; principal; 2024-07-05)
PROC: 3E023GC Introduction of Other Therapeutic Substance into Muscle, Percutaneous Approach (ICD-10-PCS; 2024-07-05)
PROC: 3E0337Z Introduction of Electrolytic and Water Balance Substance into Peripheral Vein, Percutaneous Approach (ICD-10-PCS; 2024-07-05)
PROC: 3E033GC Introduction of Other Therapeutic Substance into Peripheral Vein, Percutaneous Approach (ICD-10-PCS; 2024-07-05)
DX: D64.9 Anemia, unspecified (principal); D75.839 Thrombocytosis, unspecified; E05.00 Thyrotoxicosis with diffuse goiter without thyrotoxic crisis or storm; E03.9 Hypothyroidism, unspecified; E66.9 Obesity, unspecified; F32.A Depression, unspecified; K29.70 Gastritis, unspecified, without bleeding; F12.90 Cannabis use, unspecified, uncomplicated; Z90.89 Acquired absence of other organs
CPT/HCPCS: 0241U-QW; 36415; 36430; 71045-TC-FY; 76830-TC; 80053; 81003; 82728; 82962; 83001; 83002; 83540; 83550; 83735; 84100; 84146; 84439; 84443; 84703; 85025; 85027; 85045; 85610; 85730; 86803; 86850; 86900; 86901; 86922; 87077; 87086; 87389; 93005; 93010; 99285-25; G0378; P9038; P9058

== ENCOUNTER 2024-12-26 14:42 | Observation (INO) | payer BC ==
[2024-12-26 15:27] LABS: ABSOLUTE IMMATURE GRANULOCYTES 0.02 x10^3/uL (0.0-0.031); BASOPHILS # 0.05 x10^3/uL (0.01-0.08); EOSINOPHIL % 3.6 % (0.7-5.8); EOSINOPHILS # 0.22 x10^3/uL (0.04-0.36); MCHC 26.4 g/dl (32.2-35.5); MEAN CELL VOLUME 70.7 fl (79.4-94.8); MEAN PLT VOLUME 9.5 fl (9.4-12.3); MONOCYTE # 0.46 x10^3/uL (0.24-0.86); MONOCYTE % 7.5 % (4.7-12.5); RDW 19.7 % (12.1-16.5)
[2024-12-26] MEDS: SODIUM CHLORIDE 0.9% 500 ML INFUS.BAG IV ONE (15:32)
[2024-12-26 15:33] LABS: INR 1.1 (0.83-1.09); PROTHROMBIN TIME (PATIENT) 12.0 SEC (9.7-13.0)
[2024-12-26 15:36] LABS: ACTIVATED PTT 27.1 SECONDS (25.2-36.5)
[2024-12-26 15:50] LABS: CO2 23.0 mmol/L (21-32); GLUCOSE,RANDOM 85.0 mg/dL (74-106)
[2024-12-26 15:53] LABS: CREATININE 0.7 mg/dL (0.55-1.3); SGOT/AST 10.0 U/L (15-37); SGPT/ALT 12.0 U/L (13-61)
[2024-12-26 15:54] LABS: TOT PROT 6.8 g/dl (6.4-8.2)
[2024-12-26 15:55] LABS: ALK PHOS 56.0 U/L (45-117)
[2024-12-26 16:46] LABS: HCV DIAGNOSTIC IN-HOUSE W/RFLX NON-REACTIVE (NONREACTIVE)
[2024-12-26 16:47] LABS: HIV INTERPRETATION NEGATIVE (NEGATIVE)
[2024-12-26] MEDS: IRON SUCROSE INJECTION 200 MG in SODIUM CHLORIDE 100 ML IVPB ONE (19:00)
[2024-12-26 21:06] VITALS: BMI 31.6
[2024-12-27 02:46] LABS: ABSOLUTE IMMATURE GRANULOCYTES 0.02 x10^3/uL (0.0-0.031); BASOPHILS # 0.05 x10^3/uL (0.01-0.08); EOSINOPHIL % 2.3 % (0.7-5.8); EOSINOPHILS # 0.17 x10^3/uL (0.04-0.36); MCHC 27.6 g/dl (32.2-35.5); MEAN CELL VOLUME 71.5 fl (79.4-94.8); MEAN PLT VOLUME 9.7 fl (9.4-12.3); MONOCYTE # 0.69 x10^3/uL (0.24-0.86); MONOCYTE % 9.4 % (4.7-12.5); RDW 19.7 % (12.1-16.5)
[2024-12-27] MEDS: SERTRALINE HCL 50 MG TABLET (FP) PO SCH (09:24)
[2024-12-27] MEDS: LEVOTHYROXINE NA 100 MCG TABLET (FP) PO SCH (09:24)
[2024-12-27] MEDS: IRON SUCROSE INJECTION 200 MG in SODIUM CHLORIDE 100 ML IVPB ONE (11:18)
[2024-12-27 11:44] LABS: ABSOLUTE IMMATURE GRANULOCYTES 0.02 x10^3/uL (0.0-0.031); BASOPHILS # 0.05 x10^3/uL (0.01-0.08); EOSINOPHIL % 2.7 % (0.7-5.8); EOSINOPHILS # 0.21 x10^3/uL (0.04-0.36); MCHC 28.6 g/dl (32.2-35.5); MEAN CELL VOLUME 72.8 fl (79.4-94.8); MEAN PLT VOLUME 9.6 fl (9.4-12.3); MONOCYTE # 0.70 x10^3/uL (0.24-0.86); MONOCYTE % 9.0 % (4.7-12.5); RDW 20.5 % (12.1-16.5)
[2024-12-27 12:08] LABS: CO2 21.0 mmol/L (21-32); GLUCOSE,RANDOM 77.0 mg/dL (74-106)
[2024-12-27 12:11] LABS: CREATININE 0.6 mg/dL (0.55-1.3); SGOT/AST 11.0 U/L (15-37)
[2024-12-27 12:12] LABS: TOT PROT 6.7 g/dl (6.4-8.2)
[2024-12-27 12:14] LABS: ALK PHOS 60.0 U/L (45-117)
[2024-12-27 12:16] LABS: SGPT/ALT 12.0 U/L (13-61)
[2024-12-27 13:14] VITALS: BP 125/83; PULSE 80; RESP 19; TEMP 97.9
== END 2024-12-27 13:25 | disposition home or self-care (01) ==
LOC: JER 14:42 → JERBED 16:49 → J4W 20:11
PROVIDERS: ADMIT Internal Medicine; ATTEND Internal Medicine
PROC: 3E0337Z Introduction of Electrolytic and Water Balance Substance into Peripheral Vein, Percutaneous Approach (ICD-10-PCS; principal; 2024-12-26)
PROC: 3E033GC Introduction of Other Therapeutic Substance into Peripheral Vein, Percutaneous Approach (ICD-10-PCS; 2024-12-26)
PROC: 30233N1 Transfusion of Nonautologous Red Blood Cells into Peripheral Vein, Percutaneous Approach (ICD-10-PCS; 2024-12-26)
DX: R55 Syncope and collapse (principal); D50.9 Iron deficiency anemia, unspecified; E03.9 Hypothyroidism, unspecified; K29.70 Gastritis, unspecified, without bleeding; E05.00 Thyrotoxicosis with diffuse goiter without thyrotoxic crisis or storm; Z90.89 Acquired absence of other organs
CPT/HCPCS: 36415; 36430; 36511; 71046-TC-FY; 80053; 83735; 84439; 84443; 84484; 84703; 85025; 85610; 85730; 86803; 86850; 86870; 86880; 86900; 86901; 86902; 86922; 87389; 93005; 93010; 99285-25; G0378; J1756; P9038; P9058